=== PATIENT | female | born 1990 | race Hispanic/Latino ===

== ENCOUNTER 2023-06-07 19:53 | Emergency (ER) | payer SELFPAY ==
[~2023-06-07 19:53] MED LIST: Iopamidol 300 61% 100 ML VIAL FS ONE
[2023-06-07] MEDS ORDERED: Mag-Al Plus 1200 MG/1200 MG/120 MG/30 ML UDCUP ONE (20:48)
[2023-06-07] MEDS ORDERED: Sucralfate 1 GM/10 ML UDCUP ONE (20:48)
[2023-06-07] MEDS ORDERED: Famotidine/PF 20 mg/2ml Vial ONE (20:48)
[2023-06-07 21:08] LABS: #Eosinphils 0.1 10x3/uL (0.0-0.5); #Monocytes 0.6 10x3/uL (0.0-1.1); #Neutrophils 5.3 10x3/uL (1.5-8.4); %Basophils 0.5 % (0.0-2.0); %Eosinophils 0.6 % (0.0-6.0); %Lymphocytes 28.6 % (18.0-47.0); %Monocytes 6.7 % (0.0-10.0); %Neutrophils 63.4 % (40.0-75.0); Hematocrit 40.4 % (34.9-44.5); Hemoglobin 13.8 g/dL (12.0-15.5); Mean Corpuscular HGB CONC 34.2 g/dL (32.0-36.0); Mean Corpuscular Hemoglobin 29.7 pg (27.0-33.0); Mean Corpuscular Volume 87.1 fl (81.6-98.3); Mean Platelet Volume 10.7 fl (7.4-10.4); Platelet Count 299 10x3/uL (150-450); RBC Distribution Width 12.8 % (11.5-14.5); Red Blood Cell (RBC) Count 4.64 10x6/uL (3.90-5.03); White Blood Cell (WBC) Count 8.4 10x3/uL (3.5-10.5)
[2023-06-07 21:09] LABS: Bilirubin Neg (Negative); Blood, Urine 250 (Negative); Clarity Clear (Clear); Glucose, Urine (Dipstick) Normal (Negative); Ketone, Urine Negative (Negative); Leukocyte 100 (Negative); Nitrite Negative (Negative); Protein, Urine (Dipstick) 30 mg/dl (Neg-Trace); Specific Gravity, Urine 1.005 (1.005-1.030); Urobilinogen Normal mg/dL (Less than 2)
[2023-06-07 21:18] LABS: RBC/HPF 21-50 HPF (0-3)
[2023-06-07 21:19] LABS: Bacteria/HPF None Seen HPF (None Seen); CAUTI Indications for Culture Pelvic or flank pain; Squamous Epithelial 0-3 HPF (0-3); Urine Culture Reflex No No; WBC/HPF 0-3 HPF (0-3)
[2023-06-07 21:20] LABS: BHCG - Serum Negative (NEGATIVE); Pregs Control Background? CLEAR/WHITE (CLR/WHITE); Pregs Control Bar Appear? YES (CONTROL BAR)
[2023-06-07 21:22] LABS: ALT (SGPT) 23 U/L (8-55); AST (SGOT) 19 U/L (5-34); Albumin 5.1 g/dL (3.5-5.0); Alkaline Phosphatase 88 U/L (40-110); Anion Gap 16 mmol/L (10-20); BUN (Urea Nitrogen) 8 mg/dL (7.0-18.7); Bilirubin, Total 0.5 mg/dL (0.2-1.2); Calc. Creatinine Clearance 0 mL/min (70-130); Calcium 9.3 mg/dL (7.8-10.44); Carbon Dioxide 20 mmol/L (22-29); Chloride 105 mmol/L (98-107); Estimated GFR 118; Globulin 3.2 g/dL (2.4-3.5); Glucose 85 mg/dL (70-105); Lipase 17 U/L (8-78); Magnesium 2.2 mg/dL (1.6-2.6); Potassium 3.4 mmol/L (3.5-5.1); Protein, Total 8.3 g/dL (6.0-8.3); Sodium 138 mmol/L (136-145)
[2023-06-07 21:28] LABS: Troponin I Less than 0.010 ng/mL (< 0.028)
[2023-06-07] MEDS ORDERED: traMADol HCl 50 MG TAB ONE (21:42)
[2023-06-07] MEDS ORDERED: Potassium Chloride 20 MEQ TAB ONE (21:43)
[2023-06-07] MEDS ORDERED: Ketorolac Tromethamine 30 MG/ML VIAL ONE (23:02)
== END 2023-06-08 01:19 | disposition home or self-care (01) ==
LOC: CSHERS 19:53
DX: K80.20 Calculus of gallbladder without cholecystitis without obstruction (principal)
CPT/HCPCS: 36415; 71045; 74177; 76705; 80053; 81001; 83690; 83735; 84484; 84703; 85025; 85379; 93005; 96374; 96375; J1885; Q9967; S0028

== ENCOUNTER 2024-06-21 17:41 | Inpatient (IN) | payer MEDICAID, OTHER ==
[2024-06-21] MEDS ORDERED: hydrALAZINE 20 MG/ML VIAL SLOW IVP PRN ×2 (18:44→20:16)
[2024-06-21] MEDS ORDERED: Misoprostol 200 MCG TAB PR PRN (20:16)
[2024-06-21] MEDS ORDERED: Ondansetron PF 4 MG/2 ML Vial IVP PRN (20:16)
[2024-06-21] MEDS ORDERED: Carboprost 250 MCG/ML AMP IM PRN (20:16)
[2024-06-21] MEDS ORDERED: Diphenoxylate HCl/Atropine Tablet PO PRN (20:16)
[2024-06-21] MEDS ORDERED: Promethazine HCl 25 MG/ML VIAL IM PRN (20:16)
[2024-06-21] MEDS ORDERED: Tranexamic Acid 1,000 MG/10 ML VIAL IVP PRN (20:16)
[2024-06-21] MEDS ORDERED: Oxytocin 30 units/NS 500 ML 500 ML IV SCH (20:30)
[2024-06-21] MEDS: Labetalol HCl 100 MG TAB PO SCH (20:50)
[2024-06-21] MEDS ORDERED: Ondansetron ODT 4 MG TAB PO PRN (20:51)
[2024-06-21 21:26] VITALS: BMI 38.5
[2024-06-21] MEDS: Betamet Acet/Betamet Na Ph 30 MG/5 ML VIAL IM SCH (23:51)
[2024-06-22] MEDS: Prenatal Vitamin 1 TAB PO SCH (09:35)
[2024-06-22] MEDS: Aspirin 81 mg Enteric Coated Tablet PO SCH (09:35)
[2024-06-22] MEDS: Acetaminophen 325 MG TAB PO PRN (19:23)
[2024-06-23] MEDS: Labetalol HCl 100 MG TAB PO SCH (21:29)
[2024-06-24] MEDS ORDERED: Famotidine/PF 20 mg/2ml Vial SLOW IVP PRN (00:13)
[2024-06-24] MEDS ORDERED: Bicitra 30 ML UDCUP PO PRN (00:13)
[2024-06-24 00:15] LABS: #Basophils 0.01 10x3/uL (0.0-0.2); #Monocytes 0.68 10x3/uL (0.0-1.1); #Neutrophils 11.78 10x3/uL (1.5-8.4); %Basophils 0.1 % (0.0-2.0); %Lymphocytes 6.9 % (18.0-47.0); %Neutrophils 86.7 % (40.0-75.0); Hematocrit 32.8 % (34.9-44.5); Hemoglobin 11.2 g/dL (12.0-15.5); Mean Corpuscular HGB CONC 34.1 g/dL (32.0-36.0); Mean Corpuscular Hemoglobin 30.4 pg (27.0-33.0); Mean Corpuscular Volume 88.9 fL (81.6-98.3); Mean Platelet Volume 9.8 fL (7.4-10.4); Platelet Count 263 10x3/uL (150-450); Red Blood Cell (RBC) Count 3.69 10x6/uL (3.90-5.03); White Blood Cell (WBC) Count 13.6 10x3/uL (3.5-10.5)
[2024-06-24] MEDS ORDERED: Magnesium Sulfate 20 gm/500 ml 6 GM/150 ML BAG IVPB SCH (00:15)
[2024-06-24] MEDS ORDERED: CEFAZOLIN 2 GM in Sodium Chloride 0.9% 100 ML IVPB SCH (00:15)
[2024-06-24 00:28] LABS: ALT (SGPT) 10 U/L (8-55); AST (SGOT) 9 U/L (5-34); Albumin 2.9 g/dL (3.5-5.0); Alkaline Phosphatase 83 U/L (40-110); Anion Gap 14 mmol/L (10-20); BUN (Urea Nitrogen) 8 mg/dL (7.0-18.7); Bilirubin, Total 0.2 mg/dL (0.2-1.2); Calc. Creatinine Clearance 205 mL/min (70-130); Calcium 8.9 mg/dL (7.8-10.44); Carbon Dioxide 18 mmol/L (22-29); Chloride 110 mmol/L (98-107); Estimated GFR 123; Globulin 3.7 g/dL (2.4-3.5); Glucose 114 mg/dL (70-105); Magnesium 1.7 mg/dL (1.6-2.6); Phosphorus 2.4 mg/dL (2.3-4.7); Potassium 3.5 mmol/L (3.5-5.1); Protein, Total 6.6 g/dL (6.0-8.3); Sodium 138 mmol/L (136-145)
[2024-06-24] MEDS ORDERED: Moisturizing Cream (Eucerin) 113 GM JAR TOP PRN (00:59)
[2024-06-24] MEDS ORDERED: Naloxone HCl 0.4 mg/ml Vial IV PRN (00:59)
[2024-06-24] MEDS ORDERED: fentaNYL 50 mcg/mL 1 mL Vial SLOW IVP PRN (00:59)
[2024-06-24] MEDS ORDERED: Promethazine HCl 25 MG/ML VIAL IM PRN ×2 (00:59→01:20)
[2024-06-24] MEDS ORDERED: Naloxone HCl 0.4 mg/ml Vial IVP PRN ×2 (00:59)
[2024-06-24] MEDS ORDERED: diphenhydrAMINE 50 MG/ML VIAL IVP PRN (00:59)
[2024-06-24] MEDS ORDERED: Ondansetron PF 4 MG/2 ML Vial IVP PRN ×3 (00:59→01:20)
[2024-06-24] MEDS ORDERED: Meperidine HCl/PF 25 MG (1 mL) VIAL SLOW IVP PRN (00:59)
[2024-06-24] MEDS ORDERED: Communication Order-Pharmacy FS SCH (01:00)
[2024-06-24] MEDS ORDERED: Methylergonovine 0.2 MG/ML VIAL IM PRN (01:20)
[2024-06-24] MEDS ORDERED: Misoprostol 200 MCG TAB PR PRN (01:20)
[2024-06-24] MEDS ORDERED: Acetaminophen 325 MG TAB PO PRN (01:20)
[2024-06-24] MEDS ORDERED: hydrALAZINE 20 MG/ML VIAL SLOW IVP PRN (01:20)
[2024-06-24 01:30] LABS: Analyzer IN Cardio CS NICU; Critical Notified By: sroller rrt; RapidComm Collect By sroller
[2024-06-24] MEDS ORDERED: Oxytocin 30 units/NS 500 ML 500 ML IV SCH (01:30)
[2024-06-24 01:31] LABS: Analyzer IN Cardio CS NICU; Critical Notified By: sroller rrt; RapidComm Collect By sroller; pH (Cord, venous) 7.373 (7.250-7.350)
[2024-06-24] MEDS: Ketorolac Tromethamine 30 MG (1 mL) VIAL IVP SCH (02:46)
[2024-06-24 05:52] LABS: Hematocrit 32.3 % (34.9-44.5); Hemoglobin 10.8 g/dL (12.0-15.5); Mean Corpuscular HGB CONC 33.4 g/dL (32.0-36.0); Mean Corpuscular Hemoglobin 30.1 pg (27.0-33.0); Mean Platelet Volume 10.4 fL (7.4-10.4); Platelet Count 255 10x3/uL (150-450); RBC Distribution Width 13.1 % (11.5-14.5); Red Blood Cell (RBC) Count 3.59 10x6/uL (3.90-5.03); White Blood Cell (WBC) Count 14.7 10x3/uL (3.5-10.5)
[2024-06-24] MEDS: CEFAZOLIN 2 GM VIAL ONE (07:33)
[2024-06-24] MEDS: Morphine PF 10 MG/10 ML VIAL ONE (07:33)
[2024-06-24] MEDS: Lactated Ringer's 1,000 ML IV SCH (07:33)
[2024-06-24] MEDS: Magnesium Sulfate 20 gm/500 ml 20 GM/500 ML BAG ONE (07:33)
[2024-06-24] MEDS: PHENYLEPHRINE-NS 100 MCG/ML 10 ML SYRINGE ONE ×2 (07:33→07:34)
[2024-06-24] MEDS: Ferrous Sulfate 325 MG TAB PO SCH (07:34)
[2024-06-24] MEDS: Promethazine HCl 25 MG/ML VIAL ONE ×2 (07:34)
[2024-06-24] MEDS: Methylergonovine 0.2 MG/ML VIAL ONE (07:34)
[2024-06-24] MEDS: Oxytocin 10 UNITS/ML VIAL ONE ×2 (07:34)
[2024-06-24] MEDS: Prenatal Vitamin 1 TAB PO SCH (07:35)
[2024-06-24] MEDS: Docusate 100 MG CAP PO SCH (08:45)
[2024-06-24] MEDS: Ketorolac Tromethamine 30 MG (1 mL) VIAL IVP PRN (18:30)
[2024-06-24] MEDS ORDERED: HYDROcodone/Acetaminophen 5/325 mg Tablet PO PRN (18:59)
[2024-06-24 20:13] LABS: D-Dimer Test 11.4 mcg/mL (0.19-0.50); PTT 24.4 sec (22.0-33.0); Prothrombin Time 10.8 sec (9.5-12.1)
[2024-06-25 04:42] LABS: Hematocrit 29.3 % (34.9-44.5); Hemoglobin 9.7 g/dL (12.0-15.5); Mean Corpuscular HGB CONC 33.1 g/dL (32.0-36.0); Mean Corpuscular Hemoglobin 30.2 pg (27.0-33.0); Mean Corpuscular Volume 91.3 fL (81.6-98.3); Mean Platelet Volume 10.1 fL (7.4-10.4); Platelet Count 210 10x3/uL (150-450); RBC Distribution Width 13.3 % (11.5-14.5); Red Blood Cell (RBC) Count 3.21 10x6/uL (3.90-5.03); White Blood Cell (WBC) Count 11.2 10x3/uL (3.5-10.5)
[2024-06-25] MEDS: Ibuprofen 800 MG TAB PO SCH (05:41)
[2024-06-25] MEDS: Boostrix 0.5 ML (Tdap) VIAL (>/=7 yrs of age) IM ONE (07:15)
[2024-06-25 11:11] VITALS: BP 125/67; TEMP 98.7
== END 2024-06-25 16:35 | disposition home or self-care (01) | DRG 787 ==
LOC: CSHLD/OP 17:41 → CSHLD 20:16 → CSHANTE 06-22 12:00 → OBSVTOIN 06-23 15:23 → CSHLD 06-23 23:53 → CSHPP 06-24 03:51
PROVIDERS: ADMIT Family Medicine; ATTEND Family Medicine
PROC: 10D00Z1 Extraction of Products of Conception, Low, Open Approach (ICD-10-PCS; principal; 2024-06-24)
DX: O36.8130 Decreased fetal movements, third trimester, not applicable or unspecified (principal); O10.92 Unspecified pre-existing hypertension complicating childbirth; Z3A.28 28 weeks gestation of pregnancy; Z37.0 Single live birth; Z79.899 Other long term (current) drug therapy; O36.5930 Maternal care for other known or suspected poor fetal growth, third trimester, not applicable or unspecified; O32.1XX0 Maternal care for breech presentation, not applicable or unspecified; O76 Abnormality in fetal heart rate and rhythm complicating labor and delivery; O34.211 Maternal care for low transverse scar from previous cesarean delivery; O99.214 Obesity complicating childbirth; E66.01 Morbid (severe) obesity due to excess calories; O62.2 Other uterine inertia
CPT/HCPCS: 36415; 51702; 59025; 76819; 80053; 82805; 83735; 84100; 85025; 85027; 85049; 85300; 85362; 85384; 85610; 85730; 86850; 86900; 86901; 88305; 99285; J0702; J1885; J2210; J2274; J2550; J2590